=== PATIENT | male | born 1990 | race African-American/Black ===

== ENCOUNTER 2024-03-28 14:45 | Outpatient (AMB) | payer OTHER, SELFPAY ==
--- NOTE | 2024-03-28 14:50 | A.OFFPC_ITS ---
Vital Signs 03/28/24 15:12 Height 6 ft 0.75 in Weight 146 lb 8 oz BMI 19.5 BP 114/66 Blood Pressure Location Rt brachial Position Sitting Pulse 71 Pulse Source Pulse Oximeter Pulse Oximetry (%) 100 Oxygen Delivery Method Room Air Intake Visit Reasons: Est Care Intake Note: Patient is here as a new patient with concern of loss of appetite for 4-5 months. Surface Water Manager Required: Yes Surface Water Manager Name: [id number] Allergies No Known Allergies Allergy (Verified 03/28/24 15:30) Tobacco use date assessed: 03/28/24 HPI Est Care HPI Details New patient Prior PCP:? No recent PCP From [facility] Moved 01/2023 Last office visit/CPE: Acute issue(s): Loss of appetite and wt loss of 6-9 lbs. Also associated with intermit. Low back pain. Also,?patient?and?family?are?currently?homeless PMHx: Denies SurgHx: None FHx: Mom: HTN, DM. SocHx: Nonsmoker. EtOH None. 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 1. Little interest or pleasure in doing things: not at all 2. Feeling down, depressed, or hopeless: not at all 3. Trouble falling or staying asleep, or sleeping too much: not at all 4. Feeling tired or having little energy: not at all 5. Poor appetite or overeating: not at all 6. Feeling bad about yourself - or that you are a failure or have let yourself or your family down: not at all 7. Trouble concentrating on things, such as reading the newspaper or watching television: not at all 8. Moving or speaking so slowly that other people could have noticed. Or the opposite - being so fidgety or restless that you have been moving around a lot more than usual: not at all 9. Thoughts that you would be better off or of hurting yourself in some way: not at all Total score: 0 Depression Screening Interpretation: Negative Depression Screening Done: Yes 04702 - PHQ-9 Billing: Yes Source: Developed by Drs. Nigel Klein, Enriqueta Ybarra, Roldan Estevez and colleagues, with an educational edwin from [employer]. Thrive Questionnaire Date Thrive assessed: 03/28/24 I am a: Patient What is your living situation today?: I have a steady place to live Within the past 12 months, did the food you bought not last and you didn't have the money to get more?: Never true Within the past 12 months, did you worry whether your food would run out before you got money to buy more?: Never true Do you have trouble paying for medicines?: No Do you have trouble getting transportation to medical appointments?: No Do you have trouble paying your heating and electricity bill?: No Do you have trouble taking care of your child, family member or friend?: No Do you have trouble with day-to-day activities such as bathing, preparing meals, shopping, managing finances, etc.?: No Are you currently unemployed and looking for a job?: Yes Are you interested in more education?: Yes THRIVE Score: 0 AUDIT C Alcohol Use Questionnaire (AUDIT-C) 1. How often do you have a drink containing alcohol?: Never 3. How often do you have six or more drinks on one occasion?: Never Total Score: 0 MICHELE-7 AMB Questionnaire MICHELE-7 Date MICHELE - 7 assessed: 03/28/24 Feeling nervous, anxious, or on edge: 0 = Not at all Not being able to stop or control worryin = Not at all Worrying too much about different things: 0 = Not at all Trouble relaxin = Not at all Being so restless that it is hard to sit still: 0 = Not at all Becoming easily annoyed or irritable: 0 = Not at all Feeling afraid as if something awful might happen: 0 = Not at all Total MICHELE-7 score (0-4 normal; 5-9 mild; 10-14 moderate; 15-21 severe): 0 Source: Developed by Drs. Nigel Klein, Enriqueta Ybarra, Roldan Estevez and colleagues, with an educational edwin from [employer]. MICHELE-7 Assessment Billing MICHELE-7 Assessment Tool: MICHELE-7 Assessment 04763 Review of Systems Const Denies chills, Denies fatigue, Denies fever(s), Denies headache(s) and Denies weakness ENT Denies dizziness and Denies headache(s) Card Denies chest pain, Denies lightheadedness, Denies dyspnea and Denies other (Palpitations) Resp Denies cough, Denies dyspnea, Denies wheezing and Denies other ( shortness of breath) GI Reports abdominal pain Musc Reports back pain, Denies numbness and Denies tingling Neuro Denies dizziness, Denies headache(s), Denies numbness, Denies tingling, Denies paresthesias and Denies weakness Psych Denies anxiety and Denies depression Endo Denies fatigue Aller/Immun Denies wheezing Physical exam (Primary Care) Vital Signs: Last Vital Signs Pulse 71 03/28/24 15:12 BP 114/66 03/28/24 15:12 Pulse Ox 100 03/28/24 15:12 Oxygen Delivery Method Room Air 03/28/24 15:12 BMI result Body Mass Index 19.5 Tobacco/Smoking Status: Tobacco use Status Tobacco use date assessed 03/28/24 03/28/24 15:32 Patient Tobacco Use Status Never used Tobacco 03/28/24 15:32 e-Cigarette/Vaping Use Never Used 03/28/24 15:32 PHQ-9: PHQ-9 Score PHQ-9: Total score 0 03/28/24 15:32 Depression Screening Interpretation: Negative Thrive Assessment: Date of Thrive Assessment Date Thrive assessed 03/28/24 03/28/24 15:32 Const General: no acute distress and well developed Nutritional Appearance: well nourished Orientation/consciousness: patient oriented x3 HENMT Head: Yes normocephalic and Yes atraumatic Eyes General: appearance normal, both eyes and all related structures Pupils: Equal, round and reactive pupils present EOM: EOMs intact bilaterally Resp Effort & Inspection: normal respiratory effort Auscultation: clear to auscultation bilaterally Cardio Rate: regular rate Rhythm: regular rhythm Heart sounds: S1 normal heart sound present, S2 normal heart sound present, no gallops, no murmurs and no rubs Neuro General: patient oriented x3 and gait normal Cranial nerves: Yes Equal, round and reactive pupils present Psych Affect: normal affect Assessment and Plan Assessment & Plan (1) Loss of appetite: Code(s): R63.0 - Anorexia Plan: Loss?of?appetite?and?weight?loss. Unclear?cause No?evidence?anxiety?or?depression?by?questionnaires Patient?feels?well?otherwise Will?check?labs May?need?referral Will?follow- up?at?next?visit?and?if?he?has?had?further?weight?loss?will?continue?to?evaluate ?and?refer?to?GI (2) Back pain: Code(s): M54.9 - Dorsalgia, unspecified Plan: Intermittent?low?back?pain?which?patient?associates?with?weight?loss Will?check?x-ray (3) Homelessness: Code(s): Z59.00 - Homelessness unspecified Plan: Will?refer?patient?to?the?nurse?navigator?to?evaluate?for?services (4) Screening for tuberculosis: Code(s): Z11.1 - Encounter for screening for respiratory tuberculosis Plan: Patient[place]recently[place] Has?loss?of?appetite?as?well. Check?TB?T?spot (5) Laboratory exam ordered as part of routine general medical examination: Code(s): Z00.00 - Encounter for general adult medical examination without abnormal findings Orders: Orders Comprehensive [place]. Panel Fast Today Z00.00 - Encounter for general adult medical examination without abnormal findings UA and rflx microscopic Today Z00.00 - Encounter for general adult medical examination without abnormal findings Syphilis Screen Today Z11.3 - Encounter for screening for infections with a predominantly sexual mode of transmission HIV Ab/Ag Today Z11.3 - Encounter for screening for infections with a predominantly sexual mode of transmission CT NG by PCR Today Z11.3 - Encounter for screening for infections with a pre dominantly sexual mode of transmission T Spot TB Today R63.0 - Anorexia, Z11.1 - Encounter for screening for respiratory tuberculosis Lipid Panel Today Z00.00 - Encounter for general adult medical examination without abnormal findings Microalbumin, Random (w Creat) Today I10 - Essential (primary) hypertension TSH reflex Free T4 Today Z00.00 - Encounter for general adult medical examination without abnormal findings Hepatitis B,C Profile Today Z11.3 - Encounter for screening for infections with a predominantly sexual mode of transmission Complete Blood Count Auto Diff Today R63.0 - Anorexia, Z00.00 - Encounter for general adult medical examination without abnormal findings XR lumbar spine 2-3V Today M54.9 - Dorsalgia, unspecified Referrals Nurse Navigator Referral Z59.00 - Homelessness unspecified Coding Level of Care Code New Pt Level 3 (74827) Diagnoses Loss of appetite R63.0 Back pain M54.9 Homelessness Z59.00 Screening for tuberculosis Z11.1 Laboratory exam ordered as part of routine general medical examination Z00.00 Additional Codes MICHELE-7 Assessment Billing - MICHELE-7 Assessment Tool: MICHELE-7 Assessment [id number] ([id number])
[2024-03-28 15:12] VITALS: BP 114/66; PULSE 71; O2SAT 100; BMI 19.5
== END 2024-03-28 16:11 | disposition home or self-care (01) ==
PROVIDERS: PCP Family Medicine; Visit Provider Family Medicine
DX: R63.0 Anorexia (principal); M54.9 Dorsalgia, unspecified; Z59.00 Homelessness unspecified; Z11.1 Encounter for screening for respiratory tuberculosis; Z00.00 Encounter for general adult medical examination without abnormal findings
CPT/HCPCS: 99203